=== PATIENT | male | born 1975 | race Caucasian/White ===

== ENCOUNTER 2021-02-15 14:26 | Emergency (ER) | payer BC ==
[2021-02-15] MEDS ORDERED: Ibuprofen 200 MG TAB ONE (15:18)
[2021-02-15] MEDS ORDERED: traMADol HCl 50 MG TAB ONE (16:39)
== END 2021-02-15 16:42 | disposition home or self-care (01) ==
LOC: CSHERS 14:26
DX: S82.64XA Nondisplaced fracture of lateral malleolus of right fibula, initial encounter for closed fracture (principal); W10.9XXA Fall (on) (from) unspecified stairs and steps, initial encounter